=== PATIENT | female | born 2000 | race Caucasian/White ===

== ENCOUNTER 2019-01-05 12:33 | Emergency (ER) | payer SELFPAY ==
[~2019-01-05 12:33] MED LIST: LIO5 PO; NO ROUTINE MEDS; PROM12.546 PO; TRAZ50 PO
--- NOTE | 2019-01-05 12:44 | ER Report ---
History and Physical Time Seen By MD: 12:44 HPI/ROS CHIEF COMPLAINT: Cyst on right lower back which is painful HISTORY OF PRESENT ILLNESS: 18-year-old female patient presents to emergency room with complaint of a cyst on the right lower back. Patient states it is becoming very painful over the last 24 hours. Patient states that she's had the cyst for approximately 3 months. She states she never did go to see a healthcare provider for concerns that they would open up and cause her pain. Patient denies any fevers, chills, nausea, vomiting or diarrhea. Patient states she is not ta christina any medication for this. Patient states this becomes so painful that she was considering trying to reid it herself. REVIEW OF SYSTEMS: Respiratory: No cough, no dyspnea. Cardiovascular: No chest pain, no palpitations. Gastrointestinal: No vomiting, no abdominal pain. Musculoskeletal: No back pain. Allergies: Coded Allergies: No Known Allergies (Verified Allergy, Mild, 10/28/12) Home Meds Active Scripts Cephalexin 500 Mg Tab (KEFLEX 500 MG TAB) 500 Mg Tablet, 500 MG PO TID for 7 Days, #21 TAB Prov:RANJAN DOTY HAMMER OPERATOR 01/05/19 Discontinued Reported Medications Liothyronine Sodium (CYTOMEL (OR EQUIV)) 5 Mcg Tab, 10 MCG PO DAILY, #30 1 Refill 11/01/12 Trazodone Hcl (DESYREL (OR EQUIV)) 50 Mg Tab, 50 MG PO HS, #30 1 Refill 11/01/12 Past Medical/Surgical History Patient has a past medical history of depression, suicide attempt 5. Patient denies any surgical history. Patient has a family medical history of diabetes. Reviewed Nurses Notes: Yes Hx Smoking: No Exposure to Second Hand Smoke?: Yes Hx Alcohol Use: No Constitutional Vital Sign - Last 24 Hours 01/05/19 01/05/19 12:41 14:38 Temp 98.9 Pulse 87 96 Resp 16 16 B/P (MAP) 118/68 142/85 (104) Pulse Ox 92 93 O2 Delivery Room Air Room Air Physical Exam General Appearance: The patient is alert, has no immediate need for airway protection and no current signs of toxicity. Respiratory: Chest is non tender, lungs are clear to auscultation. Cardiac: regular rate and rhythm Gastrointestinal: Abdomen is soft and non tender, no masses, bowel sounds normal. Musculoskeletal: Neck: Neck is supple and non tender. Extremities have full range of motion and are non tender. Skin: No rashes or lesions. Patient has abscess located on the right lower back. He is erythematous, tender to touch. It measures 4 cm x 3 cm. DIFFERENTIAL DIAGNOSIS: After history and physical exam differential diagnosis was considered for abscess, sebaceous cyst Medical Decision Making Data Points Microbiology Microbiology Date/Time Source Procedure Growth Status 01/05/19 13:52 Abscess Abdomen Gram Stain - Final Resulted 01/05/19 13:52 Abscess Abdomen Wound Culture Pending Resulted 01/05/19 13:52 Abscess Abdomen Anaerobic Culture Pending Resulted ED Course/Re-evaluation ED Course Patient was admitted to the room and placed in the bed. History and physical were obtained. Differential diagnoses were considered. Discussed with the patient the plan to drain the area on her back. Risks and benefits were discussed. Patient was numbed with 9 cc of a 1:1 mixture of lidocaine and sensorcaine. An incision was made with a 11 blade. Yellowish villagran fluid drained out. Cultures were obtained. When no longer able to express any more purulent fluid, packing was placed. 4x4 gauze was placed and a tegaderm was applied. Instructed patient to follow up in 48 hours to either the ED or an urgent care. Patient verbalized understanding. A prescription for an antibiotic was sent. Patient to take Tylenol and ibuprofen for pain control. Patient discharged to home. Decision to Disposition Date: Jan 05, 2019 Decision to Disposition Time: 14:10 Depart Departure Latest Vital Signs Vital Signs Date Time Temp Pulse Resp B/P (MAP) Pulse Ox O2 Delivery O2 Flow Rate FiO2 01/05/19 14:38 96 16 142/85 (104) 93 Room Air 01/05/19 12:41 98.9 Impression: Primary Impression: Abscess Additional Impression: Encounter for incision and drainage procedure Condition: Improved Disposition: HOME OR SELF-CARE New Scripts Cephalexin 500 Mg Tab (KEFLEX 500 MG TAB) 500 Mg Tablet 500 MG PO TID for 7 Days, #21 TAB Prov: RANJAN DOTY 01/05/19 Patient Instructions: Abscess (ED), Incision and Drainage (ED) Additional Instructions: Keep the dressing in place. Follow up in 48 hours at either the ED or an urgent care. Take your antibiotics as directed. Take a probiotic or eat yogurt while one the antibiotic. Return to the ED if you develop any fevers. Problem Qualifiers RANJAN DOTY Jan 05, 2019 12:44
[2019-01-05] MEDS ORDERED: CEPH500T7 PO (14:31)
[2019-01-05 14:38] VITALS: BP 142/85
== END 2019-01-05 14:39 | disposition home or self-care (01) ==
LOC: ER 12:47
DX: L02.212 Cutaneous abscess of back [any part, except buttock and flank] (principal)
CPT/HCPCS: 87070; 87073; 87077; 87186; 87205; 99282

== ENCOUNTER 2019-01-07 21:43 | Emergency (ER) | payer SELFPAY ==
[~2019-01-07 21:43] MED LIST changes: +CEPH500T7 PO
[2019-01-07 21:48] VITALS: BP 118/74
--- NOTE | 2019-01-07 22:07 | ER Report ---
History and Physical Time Seen By MD: 21:54 HPI/ROS CHIEF COMPLAINT: abscess recheck HISTORY OF PRESENT ILLNESS: This is a 18 year old female. She was seen two days ago for abscess, s/p incision and drainage. Packing in place, continued drainage. No fevers or chills. Still painful. Allergies: Coded Allergies: No Known Allergies (Verified Allergy, Mild, 10/28/12) Home Meds Active Scripts Sulfamethoxazole/Trimet 800-160 Mg Tab (BACTRIM DS TABLET) 1 Each Tablet, 1 TAB PO Q12H, #10 TAB 0 Refills Prov:MURRAY HINES MD 01/07/19 Cephalexin 500 Mg Tab (KEFLEX 500 MG TAB) 500 Mg Tablet, 500 MG PO TID for 7 Days, #21 TAB Prov:RANJAN DOTY 01/05/19 Discontinued Reported Medications Liothyronine Sodium (CYTOMEL (OR EQUIV)) 5 Mcg Tab, 10 MCG PO DAILY, #30 1 Refill 11/01/12 Trazodone Hcl (DESYREL (OR EQUIV)) 50 Mg Tab, 50 MG PO HS, #30 1 Refill 11/01/12 Reviewed Nurses Notes: Yes Hx Smoking: No Exposure to Second Hand Smoke?: Yes Hx Substance Use Disorder: No Hx Alcohol Use: No Constitutional Vital Sign - Last 24 Hours 01/07/19 21:48 Temp 98.2 Pulse 107 Resp 18 B/P (MAP) 118/74 Pulse Ox 97 O2 Delivery Room Air Physical Exam General: Alert, no acute distress, but anxious. Skin: Still with induration around the wound, but no spreading redness outside of the marking. Purulent drainage is scant. Medical Decision Making ED Course/Re-evaluation ED Course Packing removed and was repacked with about 4cm of 0.25 inch packing gauze. Patient had some pain but tolerated well. Reviewed culture which shows Staph which is resistant to Penicillin, but no sensitivity for cephalosporins and she is on Cephalexin. Added Bactrim DS. Told to Remove packing tomorrow and then cover with a bandage and continue with daily wound care till it heals. Decision to Disposition Date: Jan 07, 2019 Decision to Disposition Time: 22:08 Depart Departure Latest Vital Signs Vital Signs Date Time Temp Pulse Resp B/P (MAP) Pulse Ox O2 Delivery O2 Flow Rate FiO2 01/07/19 21:48 98.2 107 18 118/74 97 Room Air Impression: Primary Impression: Abscess Condition: Improved Disposition: HOME OR SELF-CARE New Scripts Sulfamethoxazole/Trimet 800-160 Mg Tab (BACTRIM DS TABLET) 1 Each Tablet 1 TAB PO Q12H, #10 TAB 0 Refills Prov: MURRAY HINES MD 01/07/19 Patient Instructions: Abscess (ED) Additional Instructions: Tomorrow evening, you can remove the packing. After this, you can wash the wound twice a day with soap and water, apply antibiotic ointment and a clean bandage. Return to the ER if this is worsening with increasing drainage, not improving, or having worsening pain or fevers. Keep taking the Cephalexin prescribed earlier. Add Bactrim DS twice a day for the next 5 days. MURRAY HINES MD Jan 07, 2019 22:07
[2019-01-07] MEDS ORDERED: TRIMETHOPRIM/SULFA 160-800 TH 2 TAB/BOTTLE PO ONE (22:10)
[2019-01-07] MEDS ORDERED: SULF-198 PO (22:12)
== END 2019-01-07 22:20 | disposition home or self-care (01) ==
LOC: ER 21:58
DX: L02.212 Cutaneous abscess of back [any part, except buttock and flank] (principal)
CPT/HCPCS: 99283